=== PATIENT | male | born 1965 | race American Indian/Alaskan Native ===

== ENCOUNTER 2020-10-19 07:05 | Inpatient (IN) | payer MEDICARE ==
[2020-10-20 10:36] VITALS: BP 142/87
== END 2020-10-20 23:57 | disposition home or self-care (01) | DRG 291 ==
LOC: ED 07:05 → SUATTDRO 07:05 → 3A 10-20 06:45
PROVIDERS: ADMIT Internal Medicine; ATTEND Internal Medicine
DX: I11.0 Hypertensive heart disease with heart failure (principal); J96.01 Acute respiratory failure with hypoxia; J18.9 Pneumonia, unspecified organism; I50.23 Acute on chronic systolic (congestive) heart failure; E83.42 Hypomagnesemia; E11.65 Type 2 diabetes mellitus with hyperglycemia; E78.5 Hyperlipidemia, unspecified; I42.0 Dilated cardiomyopathy; Z88.8 Allergy status to other drugs, medicaments and biological substances; Z95.810 Presence of automatic (implantable) cardiac defibrillator; Z90.5 Acquired absence of kidney; I25.2 Old myocardial infarction; Z87.891 Personal history of nicotine dependence
CPT/HCPCS: 36415; 71045; 80053; 82140; 82550; 82962; 83735; 83880; 84145; 84443; 84484; 85025; 85610; 87040; 93005; 94640; 94644; G0378; A9270-GY; J0456; J0696; J1100; J1815; J1940; J2270; U0003